=== PATIENT | female | born 1940 | race Two or more races ===

== ENCOUNTER 2025-06-20 16:07 | Inpatient (IN) | payer OTHER ==
[~2025-06-20] VITALS: Ht 157.5 cm; Wt 79.8 kg
[2025-06-20] MEDS ORDERED: SINGULAIR4 M1 PO (16:50)
[2025-06-20] MEDS ORDERED: CARDURA1 MG PO (16:50)
[2025-06-20] MEDS ORDERED: CARVEDILOL3.125 M1 PO (16:50)
[2025-06-20] MEDS ORDERED: XARELTO1 MG/1 ML PO (16:51)
--- NOTE | 2025-06-20 16:55 | NUR ---
PTE ALERTA,ESTABLE Y ORIENTADA.ESTA REFIERE QUE SUFRIO SONA CAIDA EL ARYAN 06/06/25 DONDE SE LASTIMO LA VISHAL RICH.
[2025-06-20] MEDS ORDERED: FAMOtidine 10 MG/ML (4ML VIAL) IV PUSH ONE (18:00)
[2025-06-20] MEDS ORDERED: MORPHINE SULFATE 4 MG/ML CARTRIDGE IV ONE (18:00)
[2025-06-20] MEDS ORDERED: ACETAMINOPHEN 500 MG GEL..CAP PO ONE ×2 (18:00→23:45)
[2025-06-20] MEDS ORDERED: 0.9 % SODIUM CHLORIDE 1,000 ML IV SCH (18:00)
[2025-06-20 23:38] LABS: BASO % 0.5 % (0.1-1.2); EOS # 0.15 (0.04-0.54); EOS % 2.5 % (0.7-7.0); LYMPH # 0.80 (1.18-3.74); LYMPH % 13.4 % (19.3-53.1); MEAN PLATELET VOLUME 11.40 fl (9.4-12.4); MONO # 0.53 (0.24-0.82); MONO % 8.9 % (4.7-12.5); NEUT # 4.44 (1.56-6.13); NEUT % 74.5 % (34.0-71.1); RED CELL DISTRIBUTION WIDTH 13.0 % (11.6-14.4)
[2025-06-20 23:41] LABS: ERYTHROCYTE SEDIMENTATION RATE 23 mm/hr (0-30)
[2025-06-20] MEDS ORDERED: FAMOTIDINE/PF 20 MG/2 ML VIAL ONE (23:45)
--- NOTE | 2025-06-20 23:46 | NUR ---
SE ORIENTA A PACIENTE SOBRE ORDEN MEDICA LA MISMA REFIERE ENTENDER Y ACEPTA.
[2025-06-21] LABS: ALT/SGPT 16.0 U/L (12-78); AST/SGOT 18.0 U/L (15-37); BILIRUBIN TOTAL 1.24 mg/dL (0.3-1.2); BUN CREA RATIO 35.0 (7.0-25.0); CREATININE SERUM 0.78 mg/dL (0.55-1.02); GFR 70.71; GLOBULINA 3.4 G/DL (2.4-3.5); GLUCOSE FASTING 135.0 mg/dL (65-100); OSMOLALITY SERUM 296.0 MOSM/KG (275-295)
[2025-06-21 00:01] LABS: INR 1.75
[2025-06-21] MEDS ORDERED: CEFTRIAXONE SODIUM 2,000 MG in 0.9 % SODIUM CHLORIDE 100 ML IV ONE (00:15)
[2025-06-21 01:17] LABS: URINE APPEARANCE Clear; URINE BILIRRUBIN Negative (NEGATIVE); URINE BLOOD Moderate; URINE COLOR Yellow; URINE GLUCOSE Negative (NEGATIVE); URINE KETONE Trace (NEGATIVE); URINE LEUKOCYTE Moderate; URINE NITRATE Negative; URINE PROTEIN Negative (NEGATIVE); URINE UROBILINOGEN 1.0 E.U./dl
[2025-06-21 01:18] LABS: URINE BACTERIA 1131.5 uL (0.0-1933); URINE EPITHELIAL CELLS 18.1 uL (0.0-38.8); URINE RBC 54.5 uL (0.0-20.8); URINE WBC 47.0 uL (0.0-23.2)
[2025-06-21 01:24] LABS: URINE CAST 0.00 uL (0.0-1.40)
[2025-06-21] MEDS ORDERED: CEFTRIAXONE SODIUM 1,000 MG VIAL ONE ×2 (01:38→10:46)
[2025-06-21] MEDS ORDERED: TRAMADOL HCL 50 MG TABLET PO ONE (04:30)
[2025-06-21] MEDS ORDERED: ACETAMINOPHEN 500 MG GEL..CAP PO ONE (05:09)
--- NOTE | 2025-06-21 08:23 | NUR ---
SE TRASLADA CLIENTE HACIA AREA SECCION K CAMA #9, [place] CONSULTA CON EL DR. LIM PARA EVALUACION CIRUGIA. SE ZOFIA S/V Y SE ORIENTA SOBRE PROCESO DE EVALUACION Y [facility].
[2025-06-21] MEDS ORDERED: CEFTRIAXONE SODIUM 1,000 MG in DEXTROSE 5 % IN WATER 100 ML IV SCH (09:59)
[2025-06-21] MEDS ORDERED: PANTOPRAZOLE SODIUM 40 MG/VIAL VIAL IV PUSH SCH (10:00)
[2025-06-21] MEDS ORDERED: CARVEDILOL 6.25 MG TABLET PO SCH (10:00)
[2025-06-21] MEDS ORDERED: SODIUM CHLORIDE 0.45 % 1,000 ML IV SCH (10:00)
[2025-06-21] MEDS ORDERED: LOSARTAN POTASSIUM 50 MG TABLET PO SCH (10:00)
[2025-06-21] MEDS ORDERED: MORPHINE SULFATE 4 MG/ML CARTRIDGE IV PRN (10:15)
[2025-06-21] MEDS ORDERED: ACETAMINOPHEN 500 MG GEL..CAP PO PRN (10:15)
[2025-06-21] MEDS ORDERED: KETOROLAC TROMETHAMINE 30 MG VIAL IV PRN (10:15)
[2025-06-21] MEDS ORDERED: TRAMADOL HCL 50 MG TABLET PO PRN (10:15)
[2025-06-21] MEDS ORDERED: ONDANSETRON HCL 2 MG/ML VIAL IV PRN (10:15)
[2025-06-21] MEDS ORDERED: CARVEDILOL 12.5 MG TABLET PO SCH ×2 (10:30→17:00)
[2025-06-21 11:26] VITALS: BP 111/62; BP 117/73; O2SAT 97
[2025-06-21 15:00] VITALS: BP 162/88; O2SAT 99
[2025-06-21] MEDS ORDERED: VANCOMYCIN HCL 1,000 MG VIAL IV SCH (17:00)
[2025-06-21 17:36] VITALS: BP 149/78; O2SAT 98
[2025-06-21 19:49] LABS: BUN CREA RATIO 25.0 (7.0-25.0); CREATININE SERUM 0.81 mg/dL (0.55-1.02); GFR 67.69; GLUCOSE FASTING 123.0 mg/dL (65-100); OSMOLALITY SERUM 291.0 MOSM/KG (275-295)
[2025-06-21] MEDS ORDERED: DOCUSATE SODIUM 100MG CAP PO SCH (21:00)
[2025-06-21] MEDS ORDERED: DOXAZOSIN MESYLATE 4 MG TABLET PO SCH (21:00)
[2025-06-21 21:34] VITALS: BP 111/62; O2SAT 95
[2025-06-22] VITALS (7 sets, daily range): BP systolic 127–130; BP diastolic 67–68; O2SAT 96–99
[2025-06-22] MEDS ORDERED: HALOPERIDOL LACTATE 5 MG/ML AMPUL IV PRN (01:15)
[2025-06-22] MEDS ORDERED: DIPHENHYDRAMINE HCL 25 MG in 0.9 % SODIUM CHLORIDE 25 ML IV PRN (01:15)
[2025-06-22] MEDS ORDERED: VANCOMYCIN HCL 1,000 MG VIAL ONE (15:58)
[2025-06-22 21:43] LABS: BASO % 0.5 % (0.1-1.2); EOS # 0.18 (0.04-0.54); EOS % 2.8 % (0.7-7.0); LYMPH # 0.79 (1.18-3.74); LYMPH % 12.4 % (19.3-53.1); MEAN PLATELET VOLUME 10.90 fl (9.4-12.4); MONO # 0.62 (0.24-0.82); MONO % 9.8 % (4.7-12.5); NEUT # 4.72 (1.56-6.13); NEUT % 74.3 % (34.0-71.1); RED CELL DISTRIBUTION WIDTH 13.2 % (11.6-14.4)
[2025-06-22 22:36] LABS: ALT/SGPT 14.0 U/L (12-78); AST/SGOT 12.0 U/L (15-37); BILIRUBIN TOTAL 0.77 mg/dL (0.3-1.2); BUN CREA RATIO 21.0 (7.0-25.0); CHOL HDL RATIO 2.2 (0-5.0); CREATININE SERUM 1.17 mg/dL (0.55-1.02); FE 38.0 ug/dl (50-170); GFR 44.28; GLOBULINA 2.8 G/DL (2.4-3.5); GLUCOSE FASTING 106.0 mg/dL (65-100); HDL 48.0 mg/dl (40-60); LDL 53.0 mg/dl (0-130); OSMOLALITY SERUM 292.0 MOSM/KG (275-295); VLDL 6.0 (0-39)
[2025-06-23 00:06] VITALS: O2SAT 96
[2025-06-23 00:34] VITALS: BP 126/65; O2SAT 98
[2025-06-23 05:42] VITALS: O2SAT 95
[2025-06-23 09:49] VITALS: O2SAT 98
[2025-06-23 10:54] VITALS: BP 134/79; O2SAT 98
[2025-06-23] MEDS ORDERED: DOXAZOSIN MESYLA4 MG PO (11:59)
[2025-06-23] MEDS ORDERED: COZAAR50 MG PO (11:59)
[2025-06-23] MEDS ORDERED: CARVEDILOL12.5 MG PO (11:59)
[2025-06-23] MEDS ORDERED: COLACE100 MG PO (12:00)
[2025-06-23] MEDS ORDERED: PROTONIX40 MG PO (12:02)
[2025-06-23] MEDS ORDERED: AMOX-CLAV 875-1 EACH PO (12:05)
[2025-06-23 13:15] VITALS: O2SAT 98
[2025-06-23] MEDS ORDERED: VANCOMYCIN HCL 1,000 MG VIAL ONE (15:43)
== END 2025-06-23 16:08 | disposition home or self-care (01) | DRG 605 ==
LOC: ER 16:08 → SEC-K 06-21 12:21 → SURH 06-21 12:21 → OB/GYN 06-21 16:47 → MEDJ 06-21 18:40 → SURH 06-21 19:29
PROVIDERS: General Practice; Internal Medicine Infectious Disease; ADMIT Internal Medicine; ATTEND Internal Medicine
PROC: BQ2SYZZ Computerized Tomography (CT Scan) of Left Lower Extremity using Other Contrast (ICD-10-PCS; principal; 2025-06-20)
PROC: B246ZZZ Ultrasonography of Right and Left Heart (ICD-10-PCS; 2025-06-21)
PROC: 4A12X4Z Monitoring of Cardiac Electrical Activity, External Approach (ICD-10-PCS; 2025-06-22)
DX: S80.12XA Contusion of left lower leg, initial encounter (principal); I48.20 Chronic atrial fibrillation, unspecified; L08.89 Other specified local infections of the skin and subcutaneous tissue; I11.9 Hypertensive heart disease without heart failure; J44.89 Other specified chronic obstructive pulmonary disease; R45.1 Restlessness and agitation; R41.0 Disorientation, unspecified; Y92.810 Car as the place of occurrence of the external cause; W01.10XA Fall on same level from slipping, tripping and stumbling with subsequent striking against unspecified object, initial encounter; G47.33 Obstructive sleep apnea (adult) (pediatric); E78.5 Hyperlipidemia, unspecified; Z95.0 Presence of cardiac pacemaker; Z79.01 Long term (current) use of anticoagulants